=== PATIENT | male | born 1955 | race African-American/Black ===

== ENCOUNTER 2016-12-29 06:08 | Day surgery (SDC) | payer BC ==
--- NOTE | ~2016-12-29 | EGD ---
EGD REPORT [facility] [address] [place] [id number] NAME: MYLES OVIEDO : 55 STATUS : REG [facility]#: [id number] AGE: 61 ADM/REG DATE : 12/29/16 MR#: [id number] REPORT SERV DATE: 12/29/16 DICTATED BY: SMITH TEJADA DATE: 12/29/16 REPORT STATUS : Draft [facility]ANS[facility]ED BY: [facility] DATE: 12/29/16 [facility] Patient Name: Myles Oviedo Date of : 1955 Attending MD: TRINY TEJADA MD Procedure Date No Time: 12/29/2016 Procedure: Colonoscopy Indications: High risk colon cancer surveillance: Personal history of colonic polyps, Last colonoscopy: December 2009 Referring MD: EFE VIEIRA Medicines: See the Anesthesia note for documentation of the administered medications Complications: No immediate complications. Procedure: Pre-Anesthesia Assessment: - ASA Grade Assessment: II - A patient with mild systemic disease. - Prior to the procedure, a History and Physical was performed, and patient medications and allergies were reviewed. The patient's tolerance of previous anesthesia was also reviewed. The risks and benefits of the procedure and the sedation options and risks were discussed with the patient. All questions were answered, and informed consent was obtained. Prior Anticoagulants: The patient has taken aspirin, last dose was 3 days prior to procedure. After reviewing the risks and benefits, the patient was deemed in satisfactory condition to undergo the procedure. After I obtained informed consent, the scope was passed under direct vision. Throughout the procedure, the patient's blood pressure, pulse, and oxygen saturations were monitored continuously. The PCF [id number] was introduced through the anus and advanced to the cecum, identified by appendiceal orifice and ileocecal valve. The ileocecal valve, appendiceal orifice and rectum were photographed. The entire colon was examined. The colonoscopy was performed without difficulty. The patient tolerated the procedure well. The quality of the bowel preparation was adequate. Findings: The perianal and digital rectal examinations were normal. A sessile polyp was found in the mid ascending colon. The polyp was 3 mm in size. The polyp was removed with a cold biopsy forceps. Resection and retrieval were complete. Multiple small and large-mouthed diverticula were found in the entire EGD REPORT [address] [place]. [address] NAME: MYLES OVIEDO : 55 STATUS : REG [facility]#: [id number] AGE: 61 ADM/REG DATE : 12/29/16 MR#: [id number] REPORT SERV DATE: 12/29/16 DICTATED BY: SMITH TEJADA DATE: 12/29/16 REPORT STATUS : Draft TRANSCRIBED BY: [facility] DATE: 12/29/16 colon. Non-bleeding internal hemorrhoids were found during retroflexion and were Grade I (internal hemorrhoids that do not prolapse). No other significant abnormalities were identified in a careful examination of the remainder of the colon. Impression: - One 3 mm polyp in the mid ascending colon. Resected and retrieved. - Diverticulosis in the entire examined colon. - Non-bleeding internal hemorrhoids. Recommendation: - Patient has a contact number available for emergencies. The signs and symptoms of potential delayed complications were discussed with the patient. Return to normal activities tomorrow. Written discharge instructions were provided to the patient. - High fiber diet indefinitely. - Discharge patient to home. - Continue present medications. - Await pathology results. - Repeat colonoscopy in 5 years for surveillance. Procedure Code(s): --- Professional --- 48025, Colonoscopy, flexible, proximal to splenic flexure; with biopsy, single or multiple Diagnosis Code(s): --- Professional --- D12.2, Benign neoplasm of ascending colon K64.0, First degree hemorrhoids K57.30, Diverticulosis of large intestine without perforation or abscess without bleeding Z86.010, Personal history of colonic polyps CPT copyright 2013 [employer]. All rights reserved. The codes documented in this report are preliminary and upon hims coder review may be revised to meet current compliance requirements. TRINY TEJADA MD 12/29/2016 7:47 AM This report has been signed electronically. Number of Addenda: 0 Note Initiated On: 12/29/2016 7:15 AM Scope Withdrawal Time 0 hours 12 minutes 30 seconds EGD REPORT [facility] [address] [id number] NAME: MYLES OVIEDO : 55 STATUS : [place] [facility] [place] [id number] AGE: 61 ADM/REG DATE : 12/29/16 MR#: [id number] REPORT SERV DATE: 12/29/16 DICTATED BY: SMITH TEJADA DATE: 12/29/16 REPORT STATUS : Draft TRANSCRIBED BY: [employer] [facility] DATE: 12/29/16 [address] [id number]
[~2016-12-29 06:08] MED LIST: ASA5GR PO; MULTIPLE VIT PO; MULTIVITAMI1 PO; TOPAMAX50 MG PO; TOPXL50 PO
== END 2016-12-29 23:59 | disposition home or self-care (01) ==
LOC: DMU 06:08
PROVIDERS: Internal Medicine Gastroenterology
PROC: 0DBK8ZX Excision of Ascending Colon, Via Natural or Artificial Opening Endoscopic, Diagnostic (ICD-10-PCS; principal; 2016-12-29 07:30)
DX: K63.5 Polyp of colon (principal); K64.0 First degree hemorrhoids; K57.30 Diverticulosis of large intestine without perforation or abscess without bleeding; F17.210 Nicotine dependence, cigarettes, uncomplicated; Z86.010 Personal history of colon polyps; Z98.890 Other specified postprocedural states
CPT/HCPCS: 88305